=== PATIENT | male | born 1965 | race Caucasian/White ===

== ENCOUNTER → 2020-07-18 | Outpatient (CLI) | payer BC, OTHER | LOC: KOH-I 11:48 | DX: M54.9 Dorsalgia, unspecified (principal); M43.12 Spondylolisthesis, cervical region; M51.36 Other intervertebral disc degeneration, lumbar region | CPT/HCPCS: 72050; 72070; 72110 ==

== ENCOUNTER → 2020-10-10 | Outpatient (CLI) | payer BC | LOC: MRI 10:35 | DX: M54.12 Radiculopathy, cervical region (principal); M50.21 Other cervical disc displacement, high cervical region | CPT/HCPCS: 72141 ==

== ENCOUNTER → 2020-11-29 | Outpatient (CLI) | payer BC | LOC: MRI 09:51 → EMI 13:00 | DX: M54.16 Radiculopathy, lumbar region (principal); M43.16 Spondylolisthesis, lumbar region; M48.061 Spinal stenosis, lumbar region without neurogenic claudication | CPT/HCPCS: 72148 ==